=== PATIENT | male | born 1950 | race African-American/Black ===

== ENCOUNTER 2016-04-07 21:41 | Emergency (ER) | payer OTHER, MEDICAID ==
[~2016-04-07 21:41] MED LIST: AMLO10 PO; ATOR10 PO; CITA20TA4 PO; DOXA4 PO; LISI20 PO; LORA1TAB PO; OMEGCAP2 PO; ULTR50TA PO
[2016-04-07 21:44] VITALS: BP 193/101; PULSE 71; RESP 18; TEMP 98.4; O2SAT 98
[2016-04-07] MEDS ORDERED: LISI40TA PO (22:08)
[2016-04-07] MEDS ORDERED: OMEG100010 (22:08)
[2016-04-07] MEDS ORDERED: CITA20TA4 PO (22:08)
[2016-04-07] MEDS ORDERED: DOXA1TAB43 PO (22:08)
[2016-04-07] MEDS ORDERED: AMLO10TA2 PO (22:08)
[2016-04-07] MEDS ORDERED: TRAM50TA PO (22:08)
[2016-04-07] MEDS ORDERED: ATOR10TA15 PO (22:08)
[2016-04-07] MEDS ORDERED: LORA1TAB12 PO (22:08)
[2016-04-07] MEDS ORDERED: OXYC1CAP PO (22:08)
[2016-04-07 22:14] VITALS: O2SAT 95
--- NOTE | 2016-04-07 22:26 | PD ---
HPI Chief Complaint: Complaint Time Seen by Provider: 21:58 Travel History International Travel<30 days: No Contact w/Intl Traveler<30days: No Traveled to known affect area: No History of Present Illness HPI The patient is a 65 year old female who presents to the [facility] emergency department with a history of urinary retention that he reports began today after he underwent a hemorrhoidectomy. The patient reports that he has a history of urinary retention in the past and has had a catheter previously. He is seen by a urologist, however he cannot recall the name of his urologist. He reports having severe pain related to urinary retention. The patient reports that he has been drinking fluids well today. He is unsure whether he has passed any gas since the procedure. He reports that he was prescribed oxycodone for the pain. The patient denies any recent history of fevers, cough, congestion, neck pain, chest pain, shortness of breath, vomiting, diarrhea, or neurologic symptoms. PFS Past Medical History Narrative Medical The patient's past medical history is significant for a history of urinary retention, hypertension, hyperlipidemia, COPD, anxiety disorder, coronary artery disease status post stent placement. Arthritis: No Asthma: No Autoimmune Disease: No Blood Disorders: No Anxiety: Yes Depression: Yes Heart Rhythm Problems: Yes (BRADYCARDIA) Cancer: No Cardiac Catheterization: Yes (2006) Cardiovascular Problems: Yes High Cholesterol: Yes Chemotherapy: No Chest Pain: Yes Congestive Heart Failure: No COPD: No Cerebrovascular Accident: Yes Coronary Artery Disease: Yes Diabetes: No Dialysis: No Diminished Hearing: No Endocrine: No Gastrointestinal Disorders: No GERD: No Glaucoma: No Genitourinary: No Headaches: No Hepatitis: No Hiatal Hernia: No Heparin Induced Thrombocytopen: No Hypertension: Yes Immune Disorder: No Kidney Stones: No Musculoskeletal: No Neurologic: No Psychiatric: Yes Reproductive: No Respiratory: Yes (COPD) Migraines: No Myocardial Infarction: Yes Radiation Therapy: No Renal Failure: No Seizures: No Sickle Cell Disease: No Sleep Apnea: No Thyroid Disease: No Ulcer: No Influenza Vaccination: Yes PNEUMOCCOCAL Vaccine (Year): 2008 Past Surgical History Narrative Surgical The patient's past surgical history is significant for 2 abdominal hernia repairs, left ankle fracture ORIF, hemorrhoidectomy. Abdominal Surgery: Yes AICD: No Appendectomy: No Arteriovenous Shunt: No Cardiac Surgery: Yes Cholecystectomy: No Coronary Artery Bypass Graft: No Coronary Stent: Yes Ear Surgery: No Endocrine Surgery: No Eye Surgery: No Genitourinary Surgery: No Gynecologic Surgery: No Insulin Pump: No Joint Replacement: No Neurologic Surgery: No Oral Surgery: No Pacemaker: No Thoracic Surgery: No Other Surgery: Yes (rt inguinal hernia repair) Family History Family Myocardial Infarction: Yes (Both sides) Social History Alcohol Use: No Tobacco Use: Yes (2PPD) Substance Use: No Allergies-Medications (Allergen,Severity, Reaction): Coded Allergies: Aspirin (Verified Allergy, Severe, Bleeding, 04/07/16) Morphine (Verified Allergy, Severe, RASH, 04/07/16) Toradol (Verified Allergy, Severe, VOMITING, 04/07/16) Reported Meds & Prescriptions Reported Meds & Active Scripts Active Flomax (Tamsulosin HCl) 0.4 Mg Cap 0.4 Mg PO HS Reported Oxycodone (Oxycodone HCl) 5 Mg Cap 5 Mg PO Q4H PRN Tramadol (Tramadol HCl) 50 Mg Tab 50 Mg PO Q4H PRN [place] 3 1000 mg ([place]-3 Fatty Acids) 1 Cap Cap Lorazepam 1 Mg Tab 1 Mg PO DAILY PRN Lisinopril 40 Mg Tab 40 Mg PO DAILY Doxazosin (Doxazosin Mesylate) 8 Mg Tab 8 Mg PO BID Citalopram (Citalopram Hydrobromide) 20 Mg Tab 20 Mg PO DAILY Atorvastatin (Atorvastatin Calcium) 10 Mg Tab 10 Mg PO HS Amlodipine (Amlodipine Besylate) 10 Mg Tab 10 Mg PO DAILY Review of Systems Except as stated in HPI: all other systems reviewed are Neg General / Constitutional: No: Fever Eyes: No: Visual changes HENT: No: Headaches Cardiovascular: No: Chest Pain or Discomfort Respiratory: No: Shortness of Breath Gastrointestinal: No: Abdominal Pain Genitourinary: Positive: Decreased Urinary Output, Hesitancy, No: Urgency, Frequency, Dysuria Musculoskeletal: No: Pain Skin: No Rash Neurologic: No: Weakness Psychiatric: No: Depression Endocrine: No: Polydipsia Hematologic/Lymphatic: No: Easy Bruising Physical Exam Narrative General: The patient is a well-developed well-nourished male, uncomfortable appearing on arrival, holding his abdomen. Head and Neck exam: Head is normocephalic atraumatic. Eyes: Pupils are equal round and reactive to light. Nose: Midline septum with pink mucous membranes Mouth: Dentition unremarkable. Moist mucus membranes. Posterior oropharynx is not erythematous. No tonsillar hypertrophy. Uvula midline. Airway patent. Neck: No palpable lymphadenopathy. No nuchal rigidity. No thyromegaly. Cardiovascular: Regular rate and rhythm without murmurs, gallops, or rubs. Lungs: Clear to auscultation bilaterally. No wheezes, rhonchi, or rales. Abdomen: Soft, with suprapubic abdominal discomfort on palpation. No tenderness on palpation of McBurney's point. No guarding, rebound, or rigidity. Normal bowel sounds are audible. Extremities: No clubbing, cyanosis, or edema. 2+ pulses in all 4 extremities. Back: No spinous process tenderness to palpation. No costovertebral angle tenderness to palpation. Neurologic Exam: Grossly nonfocal. Skin Exam: No rash noted. Intact skin that is warm and dry. Data Data Last Documented VS Vital Signs Date Time Temp Pulse Resp B/P Pulse Ox O2 Delivery O2 Flow Rate FiO2 04/07/16 22:14 95 Room Air 04/07/16 21:44 98.4 71 18 193/101 Orders Complete Blood Count With Diff (04/07/16 22:04) Comprehensive Metabolic Panel (04/07/16 22:04) Urinalysis - C+S If Indicated (04/07/16 22:04) Magnesium (Mg) (04/07/16 22:04) Iv Access Insert/Monitor (04/07/16 22:04) Ecg Monitoring (04/07/16 22:04) Oximetry (04/07/16 22:04) Urinary Catheter Insert/Apply (04/07/16 22:04) Oxycodone (Roxicodone) (04/07/16 23:15) Oxycodone-Acetamin 10-325 Mg (Percocet 1 (04/08/16 00:15) Labs Laboratory Tests Test 04/07/16 22:22 White Blood Count 10.1 TH/MM3 Red Blood Count 5.93 MIL/MM3 Hemoglobin 12.5 GM/DL Hematocrit 39.1 % Mean Corpuscular Volume 65.9 FL Mean Corpuscular Hemoglobin 21.1 PG Mean Corpuscular Hemoglobin 32.0 % Concent Red Cell Distribution Width 16.5 % Platelet Count 223 TH/MM3 Mean Platelet Volume 10.7 FL Neutrophils (%) (Auto) 80.8 % Lymphocytes (%) (Auto) 12.1 % Monocytes (%) (Auto) 6.6 % Eosinophils (%) (Auto) 0.1 % Basophils (%) (Auto) 0.4 % Neutrophils # (Auto) 8.2 TH/MM3 Lymphocytes # (Auto) 1.2 TH/MM3 Monocytes # (Auto) 0.7 TH/MM3 Eosinophils # (Auto) 0.0 TH/MM3 Basophils # (Auto) 0.0 TH/MM3 CBC Comment AUTO DIFF Differential Comment AUTO DIFF CONFIRMED Toxic Vacuolation PRESENT Platelet Estimate NORMAL Platelet Morphology Comment NORMAL Ovalocytes 1+ Acanthocytes OCC Keratocytes OCC Urine Color YELLOW Urine Turbidity CLEAR Urine pH 6.5 Urine Specific [place] 1.013 Urine Protein 100 mg/dL Urine Glucose (UA) NEG mg/dL Urine Ketones NEG mg/dL Urine Occult Blood NEG Urine Nitrite NEG Urine Bilirubin NEG Urine Urobilinogen LESS THAN 2.0 MG/DL Urine Leukocyte Esterase NEG Urine RBC 1 /hpf Urine WBC LESS THAN 1 /hpf Urine Mucus FEW /lpf Microscopic Urinalysis Comment CULT NOT INDICATED Sodium Level 139 MEQ/L Potassium Level 4.1 MEQ/L Chloride Level 106 MEQ/L Carbon Dioxide Level 26.6 MEQ/L Anion Gap 6 MEQ/L Blood Urea Nitrogen 12 MG/DL Creatinine 1.66 MG/DL Estimat Glomerular Filtration 51 ML/MIN Rate Random Glucose 112 MG/DL Calcium Level 8.5 MG/DL Magnesium Level 1.8 MG/DL Total Bilirubin 0.5 MG/DL Aspartate Amino Transf 14 U/L (AST/SGOT) Alanine Aminotransferase 22 U/L (ALT/SGPT) Alkaline Phosphatase 85 U/L Total Protein 7.7 GM/DL Albumin 3.6 GM/DL [facility] Medical Decision Making Medical Screen Exam Complete: Yes Emergency Medical Condition: Yes Medical Record Reviewed: Yes Differential Diagnosis Urinary retention from medication side effect, versus urinary retention from benign prostatic hypertrophy Narrative Course During the course of the patients emergency department visit, the patients history, examination, and differential diagnosis were reviewed with the patient. The patient had IV access obtained and blood work sent for analysis. The patient had a Wilkins catheter placed to gravity. The patient had a liter out of yellow urine. The patient was provided oxycodone 5 mg by mouth 1 for pain related to his hemorrhoidectomy. The patient continued to have discomfort and showed me a bottle of oxycodone 10/325 that he was given for postop pain. He was given an additional oxycodone 10/325 one by mouth times one. The patients laboratory studies were reviewed and remarkable for a CBC that shows a white count 10.1, hemoglobin 12.5, platelets 223 with 80.8 neutrophils, CMP is remarkable for creatinine of 1.66, glucose 112, urinalysis shows 100 protein, otherwise unremarkable. The patient had a Wilkins catheter placed to a leg bag. He was instructed to follow-up with his urologist in the next 2 days. The patient was given a perception for Flomax. The patient is resting comfortably and feels better, is alert and in no distress. The patients results and examination findings were discussed with the patient. The repeat examination is unremarkable and benign. The history, exam, diagnostic testing, and current condition do not suggest any significant pathology to warrant further testing, continued ED treatment, admission, or surgical evaluation at this point. The vital signs have been stable. The patient does not have uncontrollable pain, intractable vomiting, or other significant symptoms. The patient's condition is stable and appropriate for discharge. The patient will pursue further outpatient evaluation with a primary care physician or other designated or consulting physician as indicated in the discharge instructions. The patient expressed understanding and was agreeable with this plan. Diagnosis Primary Impression: Urinary retention Referrals: Urologist 2 days Patient Instructions: General Instructions, Urinary Retention in Men (ED) Med/Other Pt SpecificInfo: Prescription(s) given Scripts Tamsulosin (Flomax)0.4 Mg Cap0.4 Mg PO HS #14 CAP Ref 0 Prov:Agnes José MD 04/08/16 Disposition: 01 DISCHARGE HOME Condition: Stable Agnes José MD Apr 07, 2016 22:25
[2016-04-07 22:44] LABS: AUTOMATED NEUTROPHIL # 8.2 TH/MM3 (1.8-7.7); BASOPHIL % 0.4 % (0.0-2.0); EOSINOPHIL % 0.1 % (0.0-4.0); HEMATOCRIT 39.1 % (39.0-51.0); LYMPH % 12.1 % (9.0-44.0); LYMPHOCYTE # 1.2 TH/MM3 (1.0-4.8); MEAN CELL VOLUME 65.9 FL (80.0-100.0); MEAN CORPUSCULAR HEMOGLOBIN 21.1 PG (27.0-34.0); MONO % 6.6 % (0.0-8.0); NEUT % 80.8 % (16.0-70.0); PLATELET COUNT 223 TH/MM3 (150-450); RED BLOOD COUNT 5.93 MIL/MM3 (4.50-5.90); RED CELL DISTRIBUTION WIDTH 16.5 % (11.6-17.2); WHITE BLOOD COUNT 10.1 TH/MM3 (4.0-11.0)
[2016-04-07 22:45] LABS: HEMO FLAGS AUTO DIFF
[2016-04-07 22:54] LABS: BLOOD, URINE NEG (NEG); GLUCOSE,URINE NEG (NEG); KETONE, URINE NEG (NEG); MUCUS URINE FEW /lpf (OCC); NITRITE,URINE NEG (NEG); PH, URINE 6.5 (5.0-8.5); URINE COLOR YELLOW (YELLW/STRAW)
[2016-04-07 22:57] LABS: ALT (GPT) 22 U/L (12-78); ANION GAP 6 MEQ/L (5-15); AST (GOT) 14 U/L (15-37); BICARBONATE 26.6 MEQ/L (21.0-32.0); BLOOD UREA NITROGEN 12 MG/DL (7-18); CHLORIDE 106 MEQ/L (98-107); COMMENT (UR) CULT NOT INDICATED; CULTURE IF INDICATED CULT NOT INDICATED; GLOMERULAR FILTRATION RATE 51 ML/MIN (>89); MAGNESIUM 1.8 MG/DL (1.5-2.5); POTASSIUM 4.1 MEQ/L (3.5-5.1); SODIUM (NA) 139 MEQ/L (136-145)
[2016-04-07 22:59] LABS: ALKALINE PHOSPHATASE 85 U/L (45-117); TOTAL BILIRUBIN ADULT 0.5 MG/DL (0.2-1.0)
[2016-04-07 23:25] LABS: ACANTHOCYTES OCC (NORMAL); KERATOCYTES OCC (NORMAL); OVALOCYTES 1+ (NORMAL); PLATELET ESTIMATE SMEAR NORMAL (NORMAL); PLATELET MORPHOLOGY NORMAL (NORMAL); SCAN/DIFF AUTO DIFF CONFIRMED; TOXIC VACUOLATION PRESENT (NONE SEEN)
[2016-04-08] MEDS ORDERED: TAMS5CAP PO (00:10)
[2016-04-08] MEDS ORDERED: oxyCODONE/ACETAMINOPHEN 10 MG/325 MG TAB PO ONE (00:15)
== END 2016-04-08 01:00 | disposition home or self-care (01) ==
LOC: NEPC 21:41
DX: R33.9 Retention of urine, unspecified (principal); I10 Essential (primary) hypertension; E78.5 Hyperlipidemia, unspecified; J44.9 Chronic obstructive pulmonary disease, unspecified; I25.10 Atherosclerotic heart disease of native coronary artery without angina pectoris; I25.2 Old myocardial infarction; F17.200 Nicotine dependence, unspecified, uncomplicated; Z98.890 Other specified postprocedural states; Z86.59 Personal history of other mental and behavioral disorders; Z98.61 Coronary angioplasty status; Z86.79 Personal history of other diseases of the circulatory system; Z79.899 Other long term (current) drug therapy
CPT/HCPCS: 51702; 80053; 81001; 83735; 85025

== ENCOUNTER 2016-11-20 22:17 | Emergency (ER) | payer OTHER, MEDICAID ==
[~2016-11-20] VITALS: Ht 185.4 cm; Wt 94.5 kg
[~2016-11-20 22:17] MED LIST changes: -AMLO10 PO; +AMLO10TA2 PO; -ATOR10 PO; +ATOR10TA15 PO; +DOXA1TAB43 PO; -DOXA4 PO; -LISI20 PO; +LISI40TA PO; -LORA1TAB PO; +LORA1TAB12 PO; +OMEG100010; -OMEGCAP2 PO; +OXYC1CAP PO; +TAMS5CAP PO; +TRAM50TA PO; -ULTR50TA PO
[2016-11-20 22:23] VITALS: PULSE 62; RESP 16; TEMP 98.7; O2SAT 96
--- NOTE | 2016-11-20 22:35 | PD ---
HPI Chief Complaint: Foreign Body Time Seen by Provider: 22:22 Travel History International Travel<30 days: No Contact w/Intl Traveler<30days: No Traveled to known affect area: No History of Present Illness HPI 66-year-old male came to the emergency room with history of a fishbone stuck in his throat. Patient was eating fish with his and the says it had a lot of bones. Soon after eating 2 bites patient started to choke. He tried to drink water and that was coming out. His drove him to the emergency room quickly. Patient appeared to be in significant distress in triage and was brought in emergently. When I saw him he was having difficulty talking but was not drooling and maintaining his airway. Vital signs were stable. [facility] Past Medical History Narrative Medical List of his past medical, surgical, social and family history is reviewed from the nursing note. Arthritis: No Asthma: No Autoimmune Disease: No Blood Disorders: No Anxiety: Yes Depression: Yes Heart Rhythm Problems: Yes (BRADYCARDIA) Cancer: No Cardiac Catheterization: Yes (2006) Cardiovascular Problems: Yes High Cholesterol: Yes Chemotherapy: No Chest Pain: Yes Congestive Heart Failure: No COPD: No Cerebrovascular Accident: Yes Coronary Artery Disease: Yes Diabetes: No Dialysis: No Diminished Hearing: No Endocrine: No Gastrointestinal Disorders: No GERD: No Glaucoma: No Genitourinary: No Headaches: No Hepatitis: No Hiatal Hernia: No Heparin Induced Thrombocytopen: No Hypertension: Yes Immune Disorder: No Kidney Stones: No Musculoskeletal: No Neurologic: No Psychiatric: Yes Reproductive: No Respiratory: Yes (COPD) Migraines: No Myocardial Infarction: Yes Radiation Therapy: No Renal Failure: No Seizures: No Sickle Cell Disease: No Sleep Apnea: No Thyroid Disease: No Ulcer: No PNEUMOCCOCAL Vaccine (Year): 2008 Past Surgical History Abdominal Surgery: Yes AICD: No Appendectomy: No Arteriovenous Shunt: No Cardiac Surgery: Yes Cholecystectomy: No Coronary Artery Bypass Graft: No Coronary Stent: Yes Ear Surgery: No Endocrine Surgery: No Eye Surgery: No Genitourinary Surgery: No Gynecologic Surgery: No Insulin Pump: No Joint Replacement: No Neurologic Surgery: No Oral Surgery: No Pacemaker: No Thoracic Surgery: No Other Surgery: Yes (rt inguinal hernia repair, hemorrhoidectomy) Family History Family Myocardial Infarction: Yes (Both sides) Social History Alcohol Use: No Tobacco Use: Yes (1ppd) Substance Use: No Allergies-Medications (Allergen,Severity, Reaction): Coded Allergies: aspirin (Verified Allergy, Severe, Bleeding, 11/20/16) ketorolac (Verified Allergy, Severe, VOMITING, 11/20/16) morphine (Verified Allergy, Severe, RASH, 11/20/16) Comments List of his allergies reviewed from the nursing note. Reported Meds & Prescriptions Reported Meds & Active Scripts Active Reported Oxycodone (Oxycodone HCl) 5 Mg Cap 5 Mg PO Q4H PRN [place] 3 1000 mg ([place]-3 Fatty Acids) 1 Cap Cap Lorazepam 1 Mg Tab 1 Mg PO DAILY PRN Lisinopril 40 Mg Tab 40 Mg PO DAILY Citalopram (Citalopram Hydrobromide) 20 Mg Tab 20 Mg PO DAILY Atorvastatin (Atorvastatin Calcium) 10 Mg Tab 10 Mg PO HS Amlodipine (Amlodipine Besylate) 10 Mg Tab 10 Mg PO DAILY Narrative Medication List of his home medications reviewed from the nursing note. Review of Systems Except as stated in HPI: all other systems reviewed are Neg Physical Exam Narrative GENERAL: Awake, alert, anxious, significant distress SKIN: Focused skin assessment warm/dry. HEAD: Atraumatic. Normocephalic. EYES: Pupils equal and round. No scleral icterus. No injection or drainage. ENT: No nasal bleeding or discharge. Mucous membranes pink and moist. Unable to see any foreign body anteriorly upon inspection of the pharynx. Patient had some pulling of the saliva that needed to be suctioned out NECK: Trachea midline. No JVD. CARDIOVASCULAR: Regular rate and rhythm. No murmur appreciated. RESPIRATORY: No accessory muscle use. Clear to auscultation. Breath sounds equal bilaterally. GASTROINTESTINAL: Abdomen soft, non-tender, nondistended. Hepatic and splenic margins not palpable. MUSCULOSKELETAL: No obvious deformities. No clubbing. No cyanosis. No edema. NEUROLOGICAL: Awake and alert. No obvious cranial nerve deficits. Motor grossly within normal limits. Normal speech. PSYCHIATRIC: Appropriate mood and affect; insight and judgment normal. Data Data Last Documented VS Vital Signs Date Time Temp Pulse Resp B/P (MAP) Pulse Ox O2 Delivery O2 Flow Rate FiO2 11/21/16 00:39 50 16 177/94 (121) 96 11/20/16 22:23 98.7 Orders Orders Soft Tissue Neck (11/20/16 ) ^ Saline Lock (11/20/16 22:24) MDM Medical Decision Making Medical Screen Exam Complete: Yes Emergency Medical Condition: Yes Medical Record Reviewed: Yes Differential Diagnosis Foreign body in throat Narrative Course 11:03 PM I discussed bout the patient with Dr. Schumacher who is on-call for ENT. As per him he first needed an x-ray done before he would give any opinion. The x-ray of the soft tissue of the neck has been done. Awaiting for the read. I can see a foreign body on the lateral film just inferior to the epiglottis. 12:[address] Schumacher was here and scope the patient. No fish bones are noticed at this point. Patient does not need to go to the OR. He recommended possibly GI consult. I put a call out for GI. 12:26 AM I discussed the case with Dr. Mcneill from GI. He agreed the patient can go home if he is able to swallow okay. Patient will be discharged home. Procedures EKG Prior to Arrival: No Physician Communication Physician Communication Dr. Schumacher Diagnosis Primary Impression: Superficial foreign body of throat, sequela Referrals: Primary Care Physician Additional Instructions: Eat soft diet for the next 24 hours. You can take Tylenol/Motrin for pain or discomfort. Follow-up with your primary care. Disposition: 01 DISCHARGE HOME Condition: Stable Fabrice Carranza MD Nov 20, 2016 22:35
--- NOTE | 2016-11-20 23:15 | RADRPT ---
EXAM DATE/TIME: 11/20/2016 22:37 [place] COMPARISON: No previous studies available for comparison. INDICATIONS : Swallowed fish bone this evening. MEDICAL HISTORY : Myocardial infarction. Hypercholesterolemia. Hypertension. Cataracts.CVA. SURGICAL HISTORY : Cardiac catheterization. Coronary stent. Right inguinal hernia repair. ENCOUNTER: Initial ACUITY: 1 day PAIN SCORE: 4/10 LOCATION: Bilateral Neck FINDINGS: Two view examination of the soft tissues of the neck demonstrates 2 linear calcific densities seen po sterior to the thyroid cartilage measuring 2.6 cm and 1.2 cm. These are concerning for foreign materi al in the hypopharynx/ upper cervical esophagus. There is degenerative change in the cervical spine. CONCLUSION: Possible small bony foreign bodies in the hypopharynx/upper cervical esophagus. Drake Feliz MD on November 20, 2016 at 23:12 Board Certified Radiologist. This report was verified electronically.
[2016-11-21 00:39] VITALS: BP 177/94
== END 2016-11-21 00:44 | disposition home or self-care (01) ==
LOC: NEPD 22:17
DX: T18.12 Food in esophagus (principal); X58.XXXS Exposure to other specified factors, sequela; I25.10 Atherosclerotic heart disease of native coronary artery without angina pectoris; I10 Essential (primary) hypertension; Z95.5 Presence of coronary angioplasty implant and graft; J44.9 Chronic obstructive pulmonary disease, unspecified; E78.00 Pure hypercholesterolemia, unspecified; F41.9 Anxiety disorder, unspecified
CPT/HCPCS: 70360; 99283

== ENCOUNTER 2016-12-14 23:19 | Inpatient (IN) | payer OTHER, MEDICARE ==
[~2016-12-14] VITALS: Ht 185.4 cm; Wt 95.0 kg
[~2016-12-14 23:19] MED LIST changes: -DOXA1TAB43 PO; -TAMS5CAP PO; -TRAM50TA PO
[2016-12-14 23:21] VITALS: BP 184/101; PULSE 88; RESP 18; TEMP 98.1; O2SAT 97
--- NOTE | 2016-12-14 23:54 | PD ---
HPI Chief Complaint: Hypertension Time Seen by Provider: 23:45 Travel History International Travel<30 days: No Contact w/Intl Traveler<30days: No Traveled to known affect area: No History of Present Illness HPI The patient is a 66 year old male who presents to the [facility] emergency department with a history of bilateral roman catholic pain with blurry vision that began a few hours ago. He took his BP and it was elevated at 212/110. The patient reports that he felt lightheaded/dizzy earlier today. The patient reports that approximately 2 weeks ago he had an additional blood pressure medication added to his regimen. He cannot recall the name of the medication. The patient reports that he does have a history of bradycardia usually in the 40s to 50s, however he is unsure whether his heart rate has ever drop down into the 30s. Otherwise on review of systems, the patient denies any recent fevers, cough, congestion, neck pain, chest pain, shortness of breath, abdominal pain, vomiting, diarrhea, urinary symptoms, one-sided weakness, slurred speech, difficulty with word finding, double vision or loss of vision, or facial droop. PCP: Dr. Maciel. 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 Arthritis: No Asthma: No Autoimmune Disease: No Blood Disorders: No Anxiety: Yes Depression: Yes Heart Rhythm Problems: Yes (BRADYCARDIA) Cancer: No Cardiac Catheterization: Yes (2005) Cardiovascular Problems: Yes High Cholesterol: Yes Chemotherapy: No Chest Pain: Yes Congestive Heart Failure: No COPD: No Cerebrovascular Accident: Yes Coronary Artery Disease: Yes Diabetes: No Dialysis: No Diminished Hearing: No Endocrine: No Gastrointestinal Disorders: No GERD: No Glaucoma: No Genitourinary: No Headaches: No Hepatitis: No Hiatal Hernia: No Heparin Induced Thrombocytopen: No Hypertension: Yes Immune Disorder: No Kidney Stones: No Musculoskeletal: No Neurologic: No Psychiatric: Yes Reproductive: No Respiratory: Yes (COPD) Migraines: No Myocardial Infarction: Yes Radiation Therapy: No Renal Failure: No Seizures: No Sickle Cell Disease: No Sleep Apnea: No Thyroid Disease: No Ulcer: No PNEUMOCCOCAL Vaccine (Year): 2008 Past Surgical History Narrative Surgical The patient's past surgical history is significant for cardiac catheterization with cardiac stent placement. Abdominal Surgery: Yes AICD: No Appendectomy: No Arteriovenous Shunt: No Cardiac Surgery: Yes Cholecystectomy: No Coronary Artery Bypass Graft: No Coronary Stent: Yes Ear Surgery: No Endocrine Surgery: No Eye Surgery: No Genitourinary Surgery: No Gynecologic Surgery: No Insulin Pump: No Joint Replacement: No Neurologic Surgery: No Oral Surgery: No Pacemaker: No Thoracic Surgery: No Other Surgery: Yes (rt inguinal hernia repair, hemorrhoidectomy) Social History Alcohol Use: Yes (rarely) Tobacco Use: Yes (1 03/24 ppd) Substance Use: No Allergies-Medications (Allergen,Severity, Reaction): Coded Allergies: aspirin (Verified Allergy, Severe, Bleeding, 12/14/16) morphine (Verified Allergy, Severe, RASH, 12/14/16) ketorolac (Verified Adverse Reaction, Severe, VOMITING, 12/15/16) Reported Meds & Prescriptions Reported Meds & Active Scripts Active Reported Clindamycin (Clindamycin HCl) 150 Mg Cap 150 Mg PO BID Lorazepam 1 Mg Tab 1 Mg PO BID PRN Lisinopril 20 Mg Tab 20 Mg PO DAILY Hydralazine (Hydralazine HCl) 100 Mg Tab 10 Mg PO Q8HR Take with meals Oxycodone (Oxycodone HCl) 5 Mg Cap 5 Mg PO Q4H PRN [place] 3 1000 mg ([place]-3 Fatty Acids) 1 Cap Cap Atorvastatin (Atorvastatin Calcium) 10 Mg Tab 10 Mg PO HS Amlodipine (Amlodipine Besylate) 10 Mg Tab 10 Mg PO DAILY Review of Systems Except as stated in HPI: all other systems reviewed are Neg General / Constitutional: No: Fever Eyes: No: Visual changes HENT: Positive: Headaches, Lightheadedness, No: Neck Stiffness, Neck Pain Cardiovascular: No: Chest Pain or Discomfort Respiratory: No: Shortness of Breath Gastrointestinal: No: Abdominal Pain Genitourinary: No: Dysuria Musculoskeletal: No: Pain Skin: No Rash Neurologic: Positive: Weakness (generalized fatigue), Headache, No: Focal Abnormalities, Change in Mentation, Slurred Speech, Sensory Disturbance Psychiatric: No: Depression Endocrine: No: Polydipsia Hematologic/Lymphatic: No: Easy Bruising Physical Exam Narrative General: The patient is a well-developed well-nourished male in no acute distress Head and Neck exam: Head is normocephalic atraumatic. Eyes: EOMI, pupils are equal round and reactive to light. Nose: Midline septum with pink mucous membranes Mouth: Dentition unremarkable. Moist mucus membranes. Posterior oropharynx is not erythematous. No tonsillar hypertrophy. Uvula midline. Airway patent. Neck: No palpable lymphadenopathy. No nuchal rigidity. No thyromegaly. Cardiovascular: Sinus bradycardia with a rate in the 40s without murmurs, gallops, or rubs. No pulse deficit to the extremities on simultaneous auscultation and palpation of his radial artery. Lungs: Clear to auscultation bilaterally. No wheezes, rhonchi, or rales. Abdomen: Soft, without tenderness to palpation in all 4 quadrants of the abdomen. No guarding, rebound, or rigidity. Normal bowel sounds are audible. No tenderness on palpation of McBurney's point. Extremities: No clubbing, cyanosis, or edema. 2+ pulses in all 4 extremities. No calf tenderness on palpation. Back: No spinous process tenderness to palpation. No costovertebral angle tenderness to palpation. Neurologic Exam: Grossly nonfocal Skin Exam: No rash noted. Intact skin that is warm and dry. Data Data Last Documented VS Vital Signs Date Time Temp Pulse Resp B/P (MAP) Pulse Ox O2 Delivery O2 Flow Rate FiO2 12/14/16 23:21 98.1 88 18 184/101 (128) 97 Room Air Orders Orders Electrocardiogram (12/15/16 00:38) Complete Blood Count With Diff (12/15/16 00:38) Comprehensive Metabolic Panel (12/15/16 00:38) Troponin I (12/15/16 00:38) Urinalysis - C+S If Indicated (12/15/16 00:38) Magnesium (Mg) (12/15/16 00:38) Chest, Single Ap (12/15/16 00:38) Iv Access Insert/Monitor (12/15/16 00:38) Ecg Monitoring (12/15/16 00:38) Oximetry (12/15/16 00:38) Ct Brain W/O Iv Contrast(Rout) (12/15/16 01:20) Hydralazine Inj (Apresoline Inj) (12/15/16 02:15) Admit Order (Ed Use Only) (12/15/16 02:45) Labs Laboratory Tests Test 12/15/16 01:00 White Blood Count 12.1 TH/MM3 Red Blood Count 5.81 MIL/MM3 Hemoglobin 12.4 GM/DL Hematocrit 40.4 % Mean Corpuscular Volume 69.6 FL Mean Corpuscular Hemoglobin 21.3 PG Mean Corpuscular Hemoglobin Concent 30.6 % Red Cell Distribution Width 17.4 % Platelet Count 166 TH/MM3 Mean Platelet Volume 10.0 FL Neutrophils (%) (Auto) 54.6 % Lymphocytes (%) (Auto) 33.7 % Monocytes (%) (Auto) 10.4 % Eosinophils (%) (Auto) 1.0 % Basophils (%) (Auto) 0.3 % Neutrophils # (Auto) 6.6 TH/MM3 Lymphocytes # (Auto) 4.1 TH/MM3 Monocytes # (Auto) 1.3 TH/MM3 Eosinophils # (Auto) 0.1 TH/MM3 Basophils # (Auto) 0.0 TH/MM3 CBC Comment DIFF FINAL Differential Comment Urine Color LIGHT-YELLOW Urine Turbidity CLEAR Urine pH 5.5 Urine Specific [place] 1.009 Urine Protein 30 mg/dL Urine Glucose (UA) NEG mg/dL Urine Ketones NEG mg/dL Urine Occult Blood NEG Urine Nitrite NEG Urine Bilirubin NEG Urine Urobilinogen LESS THAN 2.0 MG/DL Urine Leukocyte Esterase NEG Urine RBC LESS THAN 1 /hpf Urine WBC LESS THAN 1 /hpf Microscopic Urinalysis Comment CULT NOT INDICATED Blood Urea Nitrogen 23 MG/DL Creatinine 1.72 MG/DL Random Glucose 99 MG/DL Total Protein 6.9 GM/DL Albumin 3.2 GM/DL Calcium Level 8.1 MG/DL Magnesium Level 2.2 MG/DL Alkaline Phosphatase 91 U/L Aspartate Amino Transf (AST/SGOT) 20 U/L Alanine Aminotransferase (ALT/SGPT) 27 U/L Total Bilirubin 0.2 MG/DL Sodium Level 138 MEQ/L Potassium Level 4.0 MEQ/L Chloride Level 105 MEQ/L Carbon Dioxide Level 26.3 MEQ/L Anion Gap 7 MEQ/L Estimat Glomerular Filtration Rate 48 ML/MIN Troponin I 0.02 NG/ML [facility] Medical Decision Making Medical Screen Exam Complete: Yes Emergency Medical Condition: Yes Medical Record Reviewed: Yes Interpretation(s) Last Impressions Head CT 12/15/16 0120 Signed Impressions: Service Date/Time: Thursday, December 15, 2016 01:47 - CONCLUSION: 1. No acute intracranial abnormality noted. No change from November 29, 2015. Ramon Wheeler MD Chest X-Ray 12/15/16 0038 Signed Impressions: Service Date/Time: Thursday, December 15, 2016 00:35 - CONCLUSION: 1. Mild basilar atelectasis. Ramon Wheeler MD Differential Diagnosis Symptomatic bradycardia, versus hypertensive emergency, versus hypertensive urgency, versus intracranial hemorrhage, versus intracranial mass Narrative Course During the course of the patients emergency department visit, the patients history, examination, and differential diagnosis were reviewed with the patient. The patient had IV access obtained and blood work sent for analysis. The patient was placed on a city bailiff with oximetry and blood pressure monitoring. The patient ECG reveals a sinus bradycardia heart rate of 44, no acute ST segment elevation. QRS duration is 82 ms, QTC is 396 ms. The patient was initially provided hydralazine 5 mg IV times one for uncontrolled hypertension. The patients laboratory studies were reviewed and remarkable for a white count of 12.1, hemoglobin 12.4, platelets 166 with 10.4 monocytes, CMP is remarkable for a BUN of 23, creatinine 1.72, calcium 8.1, magnesium 2.2, albumin 3.2, urinalysis shows 30 protein Radiology studies were reviewed and remarkable for a CT scan of the brain that shows no acute intracranial abnormality. Chest x-ray shows mild basilar atelectasis. While the patient was being observed in the emergency department, I was notified by the nurse that the patient's heart rate had gone down as low as to 38 on the monitor. In general, the patient's heart rate is in the 40s. The patients results were discussed with the patient, including the plan of care. I explained that further testing and/ or monitoring is indicated based on the patients history, examination, and/ or laboratory findings. Therefore, I recommended admission for additional evaluation. The patient expressed understanding and was agreeable with this plan. The patient was admitted to the hospital in stable condition and sent to a bed under the care of the [facility]. Physician Communication Physician Communication The patient's case was discussed with Dr. Pickens who did agree to admit the patient for further evaluation and treatment at this time. Diagnosis Primary Impression: Symptomatic bradycardia Additional Impression: Uncontrolled hypertension Admitting Information Admitting Physician Requests: Admit Agnes José MD Dec 14, 2016 23:54
[2016-12-14] MEDS ORDERED: CLIN1CAP5 PO (23:57)
[2016-12-14] MEDS ORDERED: ATEN50TA PO (23:57)
[2016-12-14] MEDS ORDERED: HYDR-3801 PO (23:57)
[2016-12-14] MEDS ORDERED: LORA1TAB12 PO (23:57)
[2016-12-14] MEDS ORDERED: LISI-515 PO (23:57)
[2016-12-15] VITALS (9 sets, daily range): BP systolic 157–219; BP diastolic 86–121; PULSE 47–78; RESP 16–20; TEMP 98.5–99.4; O2SAT 94–98
--- NOTE | 2016-12-15 00:51 | RADRPT ---
EXAM DATE/TIME: 12/15/2016 00:35 [facility] COMPARISON: No previous studies available for comparison. INDICATIONS : Chest pain. MEDICAL HISTORY : Hypertension. SURGICAL HISTORY : None. ENCOUNTER: Initial ACUITY: 1 day PAIN SCORE: 0/10 LOCATION: Bilateral chest FINDINGS: A single view of the chest demonstrates the lungs to be symmetrically aerated without evidence of mas s, infiltrate or effusion. Mild basilar atelectasis. The cardiomediastinal contours are unremarkable. Osseous structures are intact. CONCLUSION: 1. Mild basilar atelectasis. Ramon Wheeler MD on December 15, 2016 at 0:49 Board Certified Radiologist. This report was verified electronically.
[2016-12-15 01:07] LABS: AUTOMATED NEUTROPHIL # 6.6 TH/MM3 (1.8-7.7); BASOPHIL % 0.3 % (0.0-2.0); EOSINOPHIL # 0.1 TH/MM3 (0-0.4); HEMATOCRIT 40.4 % (39.0-51.0); HEMO FLAGS DIFF FINAL; LYMPH % 33.7 % (9.0-44.0); LYMPHOCYTE # 4.1 TH/MM3 (1.0-4.8); MEAN CELL VOLUME 69.6 FL (80.0-100.0); MEAN CORPUSCULAR HEMOGLOBIN 21.3 PG (27.0-34.0); MEAN CORPUSCULAR HGB CONC 30.6 % (32.0-36.0); MONO % 10.4 % (0.0-8.0); NEUT % 54.6 % (16.0-70.0); PLATELET COUNT 166 TH/MM3 (150-450); RED BLOOD COUNT 5.81 MIL/MM3 (4.50-5.90); RED CELL DISTRIBUTION WIDTH 17.4 % (11.6-17.2); WHITE BLOOD COUNT 12.1 TH/MM3 (4.0-11.0)
[2016-12-15 01:10] LABS: BLOOD, URINE NEG (NEG); COMMENT (UR) CULT NOT INDICATED; CULTURE IF INDICATED CULT NOT INDICATED; GLUCOSE,URINE NEG (NEG); KETONE, URINE NEG (NEG); NITRITE,URINE NEG (NEG); PH, URINE 5.5 (5.0-8.5); URINE COLOR LIGHT-YELLOW (YELLW/STRAW)
[2016-12-15 01:37] LABS: ALKALINE PHOSPHATASE 91 U/L (45-117); TOTAL BILIRUBIN ADULT 0.2 MG/DL (0.2-1.0)
[2016-12-15 02:05] LABS: ALT (GPT) 27 U/L (12-78); ANION GAP 7 MEQ/L (5-15); AST (GOT) 20 U/L (15-37); BICARBONATE 26.3 MEQ/L (21.0-32.0); BLOOD UREA NITROGEN 23 MG/DL (7-18); CHLORIDE 105 MEQ/L (98-107); GLOMERULAR FILTRATION RATE 48 ML/MIN (>89); MAGNESIUM 2.2 MG/DL (1.5-2.5); SODIUM (NA) 138 MEQ/L (136-145)
[2016-12-15] MEDS ORDERED: hydrALAZINE HCL 20 MG/ML VIAL IV PUSH ONE (02:15)
--- NOTE | 2016-12-15 02:35 | RADRPT ---
EXAM DATE/TIME: 12/15/2016 01:47 [facility] COMPARISON: No previous studies available for comparison. INDICATIONS : Cephalgia with elevated blood pressure. RADIATION DOSE: 56.35 CTDIvol (mGy) MEDICAL HISTORY : Cardiovascular disease. Myocardial infarction. Chronic obstructive pulmonary disease.CVA. Coronary ar hanna disease. SURGICAL HISTORY : Cardiac catherization. ENCOUNTER: Initial ACUITY: 1 day PAIN SCALE: 3/10 LOCATION: cranial TECHNIQUE: Multiple contiguous axial images were obtained of the head. Using automated exposure control and adj ustment of the mA and/or kV according to patient size, radiation dose was kept as low as reasonably a chievable to obtain optimal diagnostic quality images. DICOM format image data is available electro nically for review and comparison. FINDINGS: CEREBRUM: The ventricles are normal for age. No evidence of midline shift, mass lesion, hemorrhage or acute in farction. No extra-axial fluid collections are seen. POSTERIOR FOSSA: The cerebellum and brainstem are intact. The 4th ventricle is midline. The cerebellopontine angle i s unremarkable. EXTRACRANIAL: The visualized portion of the orbits is intact. SKULL: The calvaria is intact. No evidence of skull fracture. CONCLUSION: 1. No acute intracranial abnormality noted. No change from November 29, 2015. Ramon Wheeler MD on December 15, 2016 at 2:32 Board Certified Radiologist. This report was verified electronically.
[2016-12-15] MEDS ORDERED: LORazepam 1 MG TAB PO PRN (04:15)
[2016-12-15] MEDS ORDERED: BISACODYL 10 MG SUPP RECTAL PRN (04:30)
[2016-12-15] MEDS ORDERED: SENNOSIDES 8.6 MG TAB PO PRN (04:30)
[2016-12-15] MEDS ORDERED: NALOXONE HCL 0.4 MG/ML AMP IV PUSH PRN (04:30)
[2016-12-15] MEDS ORDERED: MAGNESIUM HYDROXIDE SUSP 30 ML CUP PO PRN (04:30)
[2016-12-15] MEDS ORDERED: LACTULOSE SYRUP 20 GM/30 ML CUP PO PRN (04:30)
[2016-12-15] MEDS ORDERED: SODIUM CHLORIDE 0.9% FLUSH 10 ML FLUSH IV FLUSH PRN (04:30)
[2016-12-15] MEDS ORDERED: ONDANSETRON HCL 4 MG/2 ML VIAL IVP PRN (04:30)
[2016-12-15] MEDS ORDERED: hydrALAZINE HCL 20 MG/ML VIAL IV PRN (04:30)
[2016-12-15] MEDS ORDERED: ACETAMINOPHEN/HYDROcodone 325 MG/5 MG TAB PO PRN (04:30)
--- NOTE | 2016-12-15 04:31 | HHI.HP ---
HPI Service [facility] Primary Care Physician Devorah Maciel M.D. Admission Diagnosis SYMPTOMATIC BRADYCARDIA, UNCONTROLLED HTN Diagnoses: Chief Complaint: High blood pressure Travel History International Travel<30 Days: No Contact w/Intl Traveler <30 Da: No Traveled to Known Affected Are: No History of Present Illness 66-year-old male with a medical history significant for hypertension, anxiety disorder, coronary artery disease status post stent placement who presented to the emergency room for elevated blood pressure. Patient reports he had a headache and blurry vision at home. He checked his blood pressure which was markedly elevated which prompted the emergency room visit. On arrival his blood pressure was 184/101. During workup in the emergency room, his heart rate was also noted to be dropping as low as 38. He denies lightheadedness. He reports compliance with his blood pressure medications but does not take them as frequently as ordered. The patient also reports he was taking clonidine which he ran out of some time last week. He is a poor historian. He also notes that he has been taking atenolol which I noted on previous visit the patient was counseled to stop this medication. He reports he feels better since arrival. Review of Systems ROS Limitations: Poor Historian Constitutional: COMPLAINS OF: Fatigue Endocrine: DENIES: Polydipsia, Polyuria Eyes: COMPLAINS OF: Blurred vision Cardiovascular: DENIES: Chest pain Gastrointestinal: DENIES: Nausea, Vomiting Except as stated in HPI: all other systems reviewed are Neg Past Family Social History Past Medical History Hypertension Anxiety disorder Coronary artery disease status post stents placement. Past Surgical History Abdominal hernia repair Left ankle surgery Reported Medications Reported Meds & Active Scripts Active Reported Clindamycin (Clindamycin HCl) 150 Mg Cap 150 Mg PO BID Lorazepam 1 Mg Tab 1 Mg PO BID PRN Lisinopril 20 Mg Tab 20 Mg PO DAILY Hydralazine (Hydralazine HCl) 100 Mg Tab 10 Mg PO Q8HR Take with meals Oxycodone (Oxycodone HCl) 5 Mg Cap 5 Mg PO Q4H PRN [place]illa 3 1000 mg (Camilla-3 Fatty Acids) 1 Cap Cap Atorvastatin (Atorvastatin Calcium) 10 Mg Tab 10 Mg PO HS Amlodipine (Amlodipine Besylate) 10 Mg Tab 10 Mg PO DAILY Atenolol was also part of the patient's medications. Allergies: Coded Allergies: aspirin (Verified Allergy, Severe, Bleeding, 12/14/16) morphine (Verified Allergy, Severe, RASH, 12/14/16) ketorolac (Verified Adverse Reaction, Severe, VOMITING, 12/15/16) Family History Mother from complications of a stroke Father of heart attack in his 80s. Social History Patient continues to smoke 1-1/2 pack of cigarettes per day. He admits to occasional alcohol use. He denies illicit drug use. Physical Exam Vital Signs Vital Signs Date Time Temp Pulse Resp B/P (MAP) Pulse Ox O2 Delivery O2 Flow Rate FiO2 12/15/16 03:57 219/94 (135) 12/15/16 03:39 47 16 199/97 (131) 97 Room Air 12/14/16 23:21 98.1 88 18 184/101 (128) 97 Room Air Physical Exam GENERAL: This is a well-nourished, well-developed patient, in no apparent distress. SKIN: No rashes, ecchymoses or lesions. Cool and dry. HEAD: Atraumatic. Normocephalic. No temporal or scalp tenderness. EYES: Pupils equal round and reactive. Extraocular motions intact. No scleral icterus. No injection or drainage. ENT: Nose without bleeding, purulent drainage or septal hematoma. Throat without erythema, tonsillar hypertrophy or exudate. Uvula midline. Airway patent. NECK: Trachea midline. No JVD or lymphadenopathy. Supple, nontender, no meningeal signs. CARDIOVASCULAR: Regular rate and rhythm without murmurs, gallops, or rubs. RESPIRATORY: Clear to auscultation. Breath sounds equal bilaterally. No wheezes , rales, or rhonchi. GASTROINTESTINAL: Abdomen soft, non-tender, nondistended. No hepato-splenomegaly , or palpable masses. No guarding. MUSCULOSKELETAL: Extremities without clubbing, cyanosis, or edema. No joint tenderness, effusion, or edema noted. No calf tenderness. Negative Homans sign bilaterally. NEUROLOGICAL: Awake and alert. Cranial nerves II through XII intact. Motor and sensory grossly within normal limits. Five out of 5 muscle strength in all muscle groups. Normal speech. Laboratory Laboratory Tests Test 12/15/16 01:00 White Blood Count 12.1 Red Blood Count 5.81 Hemoglobin 12.4 Hematocrit 40.4 Mean Corpuscular Volume 69.6 Mean Corpuscular Hemoglobin 21.3 Mean Corpuscular Hemoglobin Concent 30.6 Red Cell Distribution Width 17.4 Platelet Count 166 Mean Platelet Volume 10.0 Neutrophils (%) (Auto) 54.6 Lymphocytes (%) (Auto) 33.7 Monocytes (%) (Auto) 10.4 Eosinophils (%) (Auto) 1.0 Basophils (%) (Auto) 0.3 Neutrophils # (Auto) 6.6 Lymphocytes # (Auto) 4.1 Monocytes # (Auto) 1.3 Eosinophils # (Auto) 0.1 Basophils # (Auto) 0.0 CBC Comment DIFF FINAL Differential Comment Urine Color LIGHT-YELLOW Urine Turbidity CLEAR Urine pH 5.5 Urine Specific [place] 1.009 Urine Protein 30 Urine Glucose (UA) NEG Urine Ketones NEG Urine Occult Blood NEG Urine Nitrite NEG Urine Bilirubin NEG Urine Urobilinogen LESS THAN 2.0 Urine Leukocyte Esterase NEG Urine RBC LESS THAN 1 Urine WBC LESS THAN 1 Microscopic Urinalysis Comment CULT NOT INDICATED Blood Urea Nitrogen 23 Creatinine 1.72 Random Glucose 99 Total Protein 6.9 Albumin 3.2 Calcium Level 8.1 Magnesium Level 2.2 Alkaline Phosphatase 91 Aspartate Amino Transf (AST/SGOT) 20 Alanine Aminotransferase (ALT/SGPT) 27 Total Bilirubin 0.2 Sodium Level 138 Potassium Level 4.0 Chloride Level 105 Carbon Dioxide Level 26.3 Anion Gap 7 Estimat Glomerular Filtration Rate 48 Troponin I 0.02 Result Diagram: 12/15/169912/15/1699 Imaging Last Impressions Head CT 12/15/16119 Signed Impressions: Service Date/Time: Thursday, December 15, 2016 01:47 - CONCLUSION: 1. No acute intracranial abnormality noted. No change from November 29, 2015. Ramon Wheeler MD Chest X-Ray 12/15/16 0038 Signed Impressions: Service Date/Time: Thursday, December 15, 2016 00:35 - CONCLUSION: 1. Mild basilar atelectasis. Ramon Wheeler MD [place] VTE Risk Assessment Caprini VTE Risk Assessment: Mod/High Risk (score >= 2) Caprini Risk Assessment Model Point Value = 1 Point Value = 2 Point Value = 3 Point Value = 5 Age 41-60 Minor surgery BMI > 25 kg/m2 Swollen legs Varicose veins or History of unexplained or recurrent spontaneous Oral contraceptives or hormone replacement Sepsis (< 1 month) Serious lung disease, including pneumonia (< 1 month) Abnormal pulmonary function Acute myocardial infarction Congestive heart failure (< 1 month) History of inflammatory bowel disease Medical patient at bed rest Age 61-74 Arthroscopic surgery Major open surgery (> 45 min) Laparoscopic surgery (> 45 min) Malignancy Confined to bed (> 72 hours) Immobilizing plaster cast Central venous access Age >= 75 History of VTE Family history of VTE Factor V Leiden Prothrombin [id number] Lupus anticoagulant Anticardiolipin antibodies Elevated serum homocysteine Heparin-induced thrombocytopenia Other congenital or acquired thrombophilia Stroke (< 1 month) Elective arthroplasty Hip, pelvis, or leg fracture Acute spinal cord injury (< 1 month) Prophylaxis Regimen Total Risk Factor Score Risk Level Prophylaxis Regimen 0-1 Low Early ambulation 2 Moderate Order ONE of the following: *Sequential Compression Device (SCD) *Heparin 5000 units SQ BID 3-4 Higher Order ONE of the following medications: *Heparin 5000 units SQ TID *Enoxaparin/Lovenox 40 mg SQ daily (WT < 150 kg, CrCl > 30 mL/min) *Enoxaparin/Lovenox 30 mg SQ daily (WT < 150 kg, CrCl > 10-29 mL/min) *Enoxaparin/Lovenox 30 mg SQ BID (WT < 150 kg, CrCl > 30 mL/min) AND/OR *Sequential Compression Device (SCD) 5 or more Highest Order ONE of the following medications: *Heparin 5000 units SQ TID (Preferred with Epidurals) *Enoxaparin/Lovenox 40 mg SQ daily (WT < 150 kg, CrCl > 30 mL/min) *Enoxaparin/Lovenox 30 mg SQ daily (WT < 150 kg, CrCl > 10-29 mL/min) *Enoxaparin/Lovenox 30 mg SQ BID (WT < 150 kg, CrCl > 30 mL/min) AND *Sequential Compression Device (SCD) Assessment and Plan Problem List: (1) Hypertensive emergency ICD Code: I10 - Essential (primary) hypertension Status: Acute (2) Symptomatic bradycardia ICD Code: R00.1 - Bradycardia, unspecified Status: Acute (3) Uncontrolled hypertension ICD Code: I10 - Essential (primary) hypertension Status: Acute (4) Tobacco abuse ICD Code: Z72.0 - Tobacco use Status: Chronic (5) CKD (chronic kidney disease), stage III ICD Code: N18.3 - Chronic kidney disease, stage 3 (moderate) Status: Chronic Assessment and Plan 66-year-old male with uncontrolled hypertension and probable noncompliance being admitted for hypertensive emergency and symptomatic bradycardia. Hypertensive emergency: neurological symptoms are related to uncontrolled hypertension and/or bradycardia. Head CT unremarkable. He may be having some rebound hypertension from clonidine use. It is unclear the last time he used this medication. - Given extra dose of IV hydralazine. Increase hydralazine to 25 mg every 8 hours. Continue lisinopril 20 mg daily. Continue Norvasc 10 mg daily. Hydralazine IV as needed. Symptomatic bradycardia: The patient continued to take atenolol even after he was told on previous visits to discontinue this medication. I discussed this with the patient at length. I showed him the bottle of the atenolol and advised him to discontinue this medication completely. He voiced understanding. - Continue to monitor on telemetry and monitor for symptoms. Chronic kidney disease stage III: Stable. Continue to monitor. Avoid nephrotoxins. Anxiety: Continue Ativan as needed. GI prophylaxis: Stool softener PRN constipation. DVT PPx: SCDs. I'm concerned about the patient's compliance. Consider home health upon discharge for medical education. Discussed Condition With Dr. José Physician Certification 2 Midnight Certification Type: Admission for Inpatient Services Order for Inpatient Services The services are ordered in accordance with Medicare regulations or non- Medicare payer requirements, as applicable. In the case of services not specified as inpatient-only, they are appropriately provided as inpatient services in accordance with the 2-midnight benchmark. Estimated LOS (days): 2 days is the estimated time the patient will need to remain in the hospital, assuming treatment plan goals are met and no additional complications. Post-Hospital Plan: Yaneli Ortiz MD Dec 15, 2016 04:31
[2016-12-15] MEDS ORDERED: hydrALAZINE HCL 100 MG TAB PO SCH (06:00)
[2016-12-15] MEDS ORDERED: hydrALAZINE HCL 50 MG TAB PO ONE (06:30)
[2016-12-15] MEDS: hydrALAZINE HCL 100 MG TAB PO SCH ×3 (07:24→21:44)
[2016-12-15] MEDS: ACETAMINOPHEN/HYDROcodone 325 MG/5 MG TAB PO PRN ×3 (08:34→21:46)
[2016-12-15] MEDS: LISINOPRIL 20 MG TAB PO SCH (08:35)
[2016-12-15] MEDS: SODIUM CHLORIDE 0.9% FLUSH 10 ML FLUSH IV FLUSH SCH ×2 (08:35→21:00)
[2016-12-15] MEDS ORDERED: ACETAMINOPHEN 325 MG TAB PO PRN (13:00)
--- NOTE | 2016-12-15 16:03 | EKG ---
Date Performed: 12/15/2016 Time Performed: 01:14:29 PTAGE: 66 years EKG: SINUS BRADYCARDIA Poor R wave progression. Largely unchanged from prior tracing. ABNORMAL E CG PREVIOUS TRACING : 11/29/2015 14.55 DOCTOR: John Capm Interpretating Date/Time 12/15/2016 16:02:43
[2016-12-15] MEDS ORDERED: ATORVASTATIN 10 MG TAB PO SCH (21:00)
[2016-12-16] VITALS: BP 162/80; PULSE 67; RESP 18; TEMP 98.1; O2SAT 96
[2016-12-16 04:00] VITALS: BP 149/94; PULSE 66; RESP 18; TEMP 98.3; O2SAT 94
[2016-12-16] MEDS: hydrALAZINE HCL 100 MG TAB PO SCH ×2 (06:57→13:14)
[2016-12-16] MEDS: ACETAMINOPHEN/HYDROcodone 325 MG/5 MG TAB PO PRN (06:58)
[2016-12-16 08:24] VITALS: BP 167/101; PULSE 63; RESP 18; TEMP 98; O2SAT 96
[2016-12-16 09:36] LABS: BICARBONATE 26.5 MEQ/L (21.0-32.0); POTASSIUM 3.9 MEQ/L (3.5-5.1)
[2016-12-16] MEDS: LISINOPRIL 20 MG TAB PO SCH (09:36)
[2016-12-16] MEDS: SODIUM CHLORIDE 0.9% FLUSH 10 ML FLUSH IV FLUSH SCH (09:36)
[2016-12-16] MEDS ORDERED: INFLUENZA VIRUS VACCINE (QUADRIVALENT) 0.5 ML SYR IM ONE (10:00)
[2016-12-16 10:39] VITALS: PULSE 64
--- NOTE | 2016-12-16 11:28 | HHI.PR ---
Subjective Remarks feels great, no headaches, nausea or vomiting seen with at bedside wanting to be DC- needs to go home BP 165-85 at bedside HR- 82- sinus Objective Vitals Vital Signs Date Time Temp Pulse Resp B/P (MAP) Pulse Ox O2 Delivery O2 Flow Rate FiO2 12/16/16 10:39 64 12/16/16 08:24 98.0 63 18 167/101 (123) 96 12/16/16 04:00 98.3 66 18 149/94 (112) 94 12/16/16 00:00 98.1 67 18 162/80 (107) 96 12/15/16 20:00 98.5 76 18 166/86 (112) 95 12/15/16 16:50 99.4 69 17 158/91 (113) 94 12/15/16 12:14 98.7 61 18 157/92 (113) 95 I/O 12/15/16 12/15/16 12/15/16 12/16/16 12/16/16 12/16/16 07:00 15:00 23:00 07:00 15:00 23:00 Intake Total 480 ml Balance 480 ml Intake Oral 480 ml # Voids 1 2 Result Diagram: 12/15/16 0100 12/16/16 0828 Imaging Last Impressions Head CT 12/15/16 0120 Signed Impressions: Service Date/Time: Thursday, December 15, 2016 01:47 - CONCLUSION: 1. No acute intracranial abnormality noted. No change from November 29, 2015. Ramon Wheeler MD Chest X-Ray 12/15/16 0038 Signed Impressions: Service Date/Time: Thursday, December 15, 2016 00:35 - CONCLUSION: 1. Mild basilar atelectasis. Ramon Wheeler MD Objective Remarks awake and alert, oriented x 3,speeech clear anictericno nystagmus no nuchal rigidity lungs clear regular rhythm abdomen soft, nontender extremities no edema neuro exam- non focal, gait steady A/P Problem List: (1) Hypertensive emergency ICD Code: I10 - Essential (primary) hypertension Status: Acute (2) Symptomatic bradycardia ICD Code: R00.1 - Bradycardia, unspecified Status: Acute (3) Uncontrolled hypertension ICD Code: I10 - Essential (primary) hypertension Status: Acute (4) Tobacco abuse ICD Code: Z72.0 - Tobacco use Status: Chronic (5) CKD (chronic kidney disease), stage III ICD Code: N18.3 - Chronic kidney disease, stage 3 (moderate) Status: Chronic Assessment and Plan 66-year-old male with uncontrolled hypertension and probable noncompliance being admitted for hypertensive emergency and symptomatic bradycardia. Hypertensive emergency: neurological symptoms are related to uncontrolled hypertension and/or bradycardia. Head CT unremarkable. He may be having some rebound hypertension from clonidine use. It is unclear the last time he used this medication. - Increase hydralazine to 25 mg every 8 hours. Continue lisinopril 20 mg daily. Continue Norvasc 10 mg daily. Symptomatic bradycardia: HR improved - Atenolol was DC on admission - as d/w by admitting MD Chronic kidney disease stage III: Stable. Continue to monitor. Avoid nephrotoxins. Anxiety: Continue Ativan as needed. GI prophylaxis: Stool softener PRN constipation. DC home today Per patient and has an appt yesterday with PCP- they will set up again Diet heart healthy Activity as tolerated PCP ff up in2-3 days Shiva Holcomb MD Dec 16, 2016 11:28
[2016-12-16] MEDS ORDERED: HYDR-3801 PO (11:31)
[2016-12-16] MEDS ORDERED: AMLO10TA2 PO (11:32)
[2016-12-16 12:15] VITALS: BP 161/87; PULSE 66; RESP 18; TEMP 98.2; O2SAT 96
== END 2016-12-16 14:25 | disposition home or self-care (01) | DRG 305 ==
LOC: NEPE 23:19 → NEDA 12-15 02:47 → N05A 12-15 06:50
PROVIDERS: ADMIT Internal Medicine; ATTEND Internal Medicine
DX: I16.1 Hypertensive emergency (principal); N18.3 Chronic kidney disease, stage 3 (moderate); I12.9 Hypertensive chronic kidney disease with stage 1 through stage 4 chronic kidney disease, or unspecified chronic kidney disease; R00.1 Bradycardia, unspecified; F41.9 Anxiety disorder, unspecified; I25.10 Atherosclerotic heart disease of native coronary artery without angina pectoris; E78.5 Hyperlipidemia, unspecified; F17.210 Nicotine dependence, cigarettes, uncomplicated; Z95.5 Presence of coronary angioplasty implant and graft; Z23 Encounter for immunization; Z91.19 Patient's noncompliance with other medical treatment and regimen; Z79.899 Other long term (current) drug therapy; Z86.73 Personal history of transient ischemic attack (TIA), and cerebral infarction without residual deficits
CPT/HCPCS: 70450; 71010; 80048; 80053; 81001; 83735; 84484; 85025; 90686; 93005; J0360; Q2038

== ENCOUNTER 2017-11-08 01:21 | Inpatient (IN) ==
[2017-11-08 04:27] LABS: Activated Partial Thrombo Time 29.2 sec (24.3-30.1); Prothrombin Time 10.3 sec (9.8-11.6)
--- NOTE | 2017-11-08 04:39 | ED ---
HPI General Chief Complaint: Headache Stated Complaint: poss high blood pressure/left side head pain Time Seen by Provider: 11/08/17 03:37 Source: patient Mode of arrival: ambulatory Limitations: no limitations History of Present Illness HPI Narrative: 67-year-old male presents to the emergency department by private transportation for complaint of 3 days of headache left-sided associated with dizziness and sometimes having to brace himself due to the severity of his dizziness. Headache is not sudden onset thunderclap or worst ever. Patient does have high blood pressure and states sometimes he will have mild dizziness but typically does not have a headache. Patient is taken no medication for his headache other than he does have prescription Percocet for chronic pain and takes Percocet every 4 hours. Patient is prescribed antihypertensive medication and does take this daily although he has been trying to taper himself off of his blood pressure medication slowly. Patient denies any altered mental status difficulty with his speech, vision disturbance, facial droop, difficulty swallowing, neck pain, chest pain, palpitations, nausea, vomiting, or shortness of breath, also denies referred neck jaw shoulder arm back or abdominal pain MD Complaint: headache Onset (ago): day(s) (3 days) Onset description: gradual Location: left Severity: moderate Quality: aching Relieving factors: nothing Exacerbating factors: none (Has history of high blood pressure) Related Data Allergies Allergy/AdvReac Type Severity Reaction Status Date / Time aspirin Allergy Severe Bleeding Verified 12/14/16 23:40 morphine Allergy Severe RASH Verified 12/14/16 23:40 ketorolac AdvReac Severe VOMITING Verified 12/15/16 04:23 Review of Systems ROS: all other systems reviewed are negative [facility] Medical History Medical History Bradycardia (Acute) HTN (hypertension) (Acute) Surgical History Surgical History History of hernia surgery (Acute) Surgical procedure on lower extremity within past 6 months (Acute) Social History Social History Substance History: Past History Smoking Status: Current every day smoker Tobacco Type: Cigarettes How Often Do You Have a Drink Containing Alcohol: Monthly or less Recent Travel in [facility] [[email or web address]] within the Last 8 Weeks: No Recent Out of Country Travel within the Last 8 Weeks: No Exam Narrative Exam Narrative: GENERAL: Well-developed well-nourished male no acute distress no respiratory distress GCS 15, triage blood pressure 162/91 SKIN: Focused skin assessment warm/dry. HEAD: Atraumatic. Normocephalic. EYES: Pupils equal and round. No scleral icterus. No injection or drainage. ENT: No nasal bleeding or discharge. Mucous membranes pink and moist. NECK: Trachea midline. No JVD. CARDIOVASCULAR: Regular rate and rhythm. No murmur appreciated. RESPIRATORY: No accessory muscle use. Clear to auscultation. Breath sounds equal bilaterally. GASTROINTESTINAL: Abdomen soft, non-tender, nondistended. Hepatic and splenic margins not palpable. MUSCULOSKELETAL: No obvious deformities. No clubbing. No cyanosis. No edema. NEUROLOGICAL: Awake and alert. No obvious cranial nerve deficits except for mild right facial droop. Motor grossly within normal limits. No limb ataxia. No pronator drift. Normal speech. PSYCHIATRIC: Appropriate mood and affect; insight and judgment normal. Course Initial Documented Vital Signs Temperature 98.3 F 11/08/17 01:41 Pulse Rate 78 11/08/17 01:41 Respiratory Rate 18 11/08/17 01:41 Blood Pressure 162/81 H 11/08/17 01:41 Pulse Oximetry 96 11/08/17 01:41 Last Documented Vital Signs Temperature 98.3 F 11/08/17 01:41 Pulse Rate 78 11/08/17 01:41 Respiratory Rate 18 11/08/17 01:41 Blood Pressure 162/81 H 11/08/17 01:41 Pulse Oximetry 96 11/08/17 01:41 Medical Decision Making [facility] Narrative Medical decision making narrative: 67-year-old male presents to the emergency department for complaint of dizziness and uncontrolled blood pressure with associated left-sided headache 3 days noted on physical exam to be mildly hypertensive and also to have right facial droop with no other focality on neurologic exam. Patient placed on night monitor with continuous pulse oximetry IV access obtained specimens collected and sent for resulting imaging study of the brain and EKG ordered At 6 AM patient resting comfortably headache stable after tylenol CT brain noncontrast shows evidence of prior right inferior basal ganglion lacunar infarct --This is new since 11/2016 CT Medical Screen Exam Complete: Yes Emergency Medical Condition: Yes Differential Diagnosis Differential Diagnosis: TIA CVA ICH uncontrolled hypertension/hypertensive crisis Collazo's palsy Medical Records Medical records reviewed: Yes I reviewed the patient's medical records. Lab Data Lab results reviewed: Yes I reviewed the patient's lab results. Result diagrams: 11/08/17 04:00 Lab Results 11/08/17 11/08/17 11/08/17 Range/Units 04:00 04:00 04:00 WBC 7.9 (4.0-11.0) th/mm3 RBC 5.84 (4.50-5.90) mil/mm3 Hgb 12.4 L (13.0-17.0) gm/dL Hct 39.1 (39.0-51.0) % MCV 67.0 L (80.0-100.0) fL MCH 21.2 L (27.0-34.0) pg MCHC 31.6 L (32.0-36.0) % RDW 18.1 H (11.6-17.2) % Plt Count 201 (150-450) th/mm3 MPV 9.9 (7.0-11.0) fL Prelim Diff (Auto) Slide review pending Neut % (Auto) 50.7 (16.0-70.0) % Lymph % (Auto) 34.4 (9.0-44.0) % [place] % (Auto) 12.1 H (0.0-8.0) % Eos % (Auto) 2.3 (0.0-4.0) % Baso % (Auto) 0.5 (0.0-2.0) % Neut # (Auto) 4.0 (1.8-7.7) th/mm3 Lymph # (Auto) 2.7 (1.0-4.8) th/mm3 [place] # (Auto) 1.0 H (0.0-0.9) th/mm3 Eos # (Auto) 0.2 (0.0-0.4) th/mm3 Baso # (Auto) 0.0 (0.0-0.2) th/mm3 WBC Differential . Diff Scan Auto diff confirmed Differential Comment . Platelet Estimate Normal (Normal) Platelet Morphology Enlarged H (Normal) Ovalocytes 1+ H (None) Acanthocytes (Spur) 1+ H (None) PT 10.3 (9.8-11.6) sec INR 1.0 Ratio APTT 29.2 (24.3-30.1) sec Troponin I Less than 0.02 L (0.02-0.05) ng/mL Imaging Data Radiologist's impression: Head CT 11/08/17 03:43 CONCLUSION: No acute intracranial abnormality is seen. . ECG Data EKG Prior to Arrival: No Attestation: I personally reviewed and interpreted this ECG as follows: Prior ECG tracings: not available for review Interpretation: EKG: Sinus bradycardia rate 50 nonspecific T-wave change laterally no acute ST elevation Discharge Plan Discharge Disposition Patient Disposition: 30 Still Patient Discharge Condition Condition: Stable Discharge Details Diagnosis: Brain TIA, H/O: CVA (cerebrovascular accident), H/O primary hypertension Physicians Team ED Provider: Antonia Vivas Primary Care Provider: Koko Chiu Status ED Status: With Doctor
[2017-11-08 04:45] LABS: Baso % (Auto) 0.5 % (0.0-2.0); Eos # (Auto) 0.2 th/mm3 (0.0-0.4); Eos % (Auto) 2.3 % (0.0-4.0); Hematocrit 39.1 % (39.0-51.0); Hemoglobin 12.4 gm/dL (13.0-17.0); Lymph # (Auto) 2.7 th/mm3 (1.0-4.8); Lymph % (Auto) 34.4 % (9.0-44.0); Mean Corpuscular HGB Conc 31.6 % (32.0-36.0); Mean Corpuscular Hemoglobin 21.2 pg (27.0-34.0); Mean Platelet Volume 9.9 fL (7.0-11.0); Mono % (Auto) 12.1 % (0.0-8.0); Neut % (Auto) 50.7 % (16.0-70.0); Platelet Count 201 th/mm3 (150-450); Red Blood Count 5.84 mil/mm3 (4.50-5.90); Red Cell Distribution Width 18.1 % (11.6-17.2); White Blood Count 7.9 th/mm3 (4.0-11.0)
--- NOTE | 2017-11-08 05:13 | CT ---
EXAM DATE: 11/08/2017 5:00 AM EDT AGE/SEX: 67 years / Male INDICATIONS: Headaches CLINICAL DATA: This is the patient's initial encounter. Patient reports that signs and symptoms have been present for 1 day and indicates a pain score of 7/10. MEDICAL/SURGICAL HISTORY: Hypertension. Abdominal aortic aneurysm repair. RADIATION DOSE: 56.35 CTDI (mGy) COMPARISON: No prior exams available for comparison. TECHNIQUE: CT of the head without contrast. Using automated exposure control and adjustment of the mA and/or kV according to patient size, radiation dose was kept as low as reasonably achievable to ob tain optimal diagnostic quality images. DICOM format image data is available electronically for revi ew and comparison. FINDINGS: Cerebrum: The ventricles are normal for age. There is an area of prior lacunar infarction involving the inferior right basal ganglia. No evidence of midline shift, mass lesion, hemorrhage or acute inf arction. No extraaxial fluid collections are seen. Posterior Fossa: The cerebellum and brainstem are intact. The 4th ventricle is midline. The cerebe llopontine angle is unremarkable. Extracranial: The visualized portion of the orbits is intact. Skull: The calvaria is intact. No evidence of skull fracture. CONCLUSION: No acute intracranial abnormality is seen. . Electronically signed by: Drake Feliz MD 11/08/2017 5:12 AM EDT
[2017-11-08 05:15] LABS: Platelet Estimate Normal (Normal)
[2017-11-08 05:16] LABS: Ovalocytes 1+
[2017-11-08 05:17] LABS: Acanthocytes 1+
[2017-11-08] MEDS ORDERED: Acetaminophen 325 MG Tablet PO ONE (06:05)
[2017-11-08] MEDS ORDERED: Dextrose 50% in Water 50 ML Vial IV.PUSH PRN (06:31)
[2017-11-08] MEDS: Insulin NovoLOG Aspart Correctional Sugar Inj SQ SCH ×4 (09:30→21:56)
[2017-11-08 09:37] LABS: Chol/HDL Ratio 4.6 Ratio; HDL Cholesterol 36.9 mg/dL (40.0-60.0)
--- NOTE | 2017-11-08 10:10 | US ---
EXAM DATE: 11/08/2017 10:00 AM EDT AGE/SEX: 67 years / Male INDICATIONS: Head pain. CLINICAL DATA: This is the patient's initial encounter. Patient reports that signs and symptoms have been present for 1 day and indicates a pain score of 0/10. MEDICAL/SURGICAL HISTORY: Hypertension. Slow heart rate. . Hernia surgery. COMPARISON: No prior exams available for comparison. VELOCITY PARAMETERS: ICA/CCA Ratio: Right 0.6 , Left 0.8 ICA: Right 57.4 cm/sec, Left 66.9 cm/sec CCA: Right 96.1 cm/sec, Left 87.0 cm/sec ECA: Right 79.9 cm/sec, Left 82.2 cm/sec Vertebral: Right 57.2 cm/sec antegrade, Left 56.9 cm/sec antegrade FINDINGS: Right Carotid: There is minimal atherosclerotic plaque in the carotid bulb.The waveforms are within normal limits. Left Carotid: No significant atherosclerotic disease is visualized. The waveforms are within normal limits. Other: None. CONCLUSION: 1. Right Internal Carotid Artery: No significant stenosis or atherosclerotic plaque is visualized. 2. Left Internal Carotid Artery: No significant stenosis or atherosclerotic plaque is visualized. Electronically signed by: Drake Mcleod MD 11/08/2017 10:09 AM EDT
--- NOTE | 2017-11-08 13:05 | MB ---
cc: Bora Tracy MD, PhD DATE: 11/08/2017 REASON FOR CONSULTATION: Headache, rule out stroke. HISTORY OF PRESENT ILLNESS: This is a very pleasant 67-year-old man who developed a severe left-sided headache yesterday, which was a pounding and throbbing pain. This had actually been going on for 3 days. He also noted dizziness and unsteadiness of gait. He was also found to be hypertensive in the ER, which he states has been a longstanding problem. He also was noted to have a right facial droop with no other focality on his examination. He did have dizziness. The facial droop is improved today. PAST MEDICAL HISTORY: He has got a history of hypertension, bradycardia, hernia surgery. CURRENT MEDICATIONS: 1. Pravachol. 2. Insulin p.r.n. 3. Tylenol p.r.n. NEUROLOGICAL EXAMINATION: VITAL SIGNS: Blood pressure is 151/76, pulse is 64, respirations 20, temperature 98.3. NEUROLOGIC: His higher cortical functions are normal at this time. Cranial nerves intact. There is no facial droop. Motor exam is normal. Reflexes are symmetric. He has no temporal artery tenderness. There is no occipital tenderness. DIAGNOSTIC DATA: CT of the brain is negative. Carotid ultrasound: No significant carotid artery stenosis is identified. EKG is sinus bradycardia. IMPRESSION: Headache I suspect related to his hypertension, facial droop, possibly related to hypertension - rule out transient ischemic attack. RECOMMENDATIONS: We will get an MRI/MRA brain, echocardiogram, monitor cardiac telemetry to rule out atrial fibrillation. Also check lipid panel. Start aspirin 81 mg daily. I will get a sedimentation rate, as well, although not typical of temporal arteritis. Bora Tracy MD, PhD CINDY/tiffanie , 10:38 AM , 10:43 AM
--- NOTE | 2017-11-08 13:07 | MR ---
EXAM DATE: 11/08/2017 12:38 PM EDT AGE/SEX: 67 years / Male INDICATIONS: CVA. cephalgia. CLINICAL DATA: This is the patient's initial encounter. Patient reports that signs and symptoms have been present for 1 day and indicates a pain score of 10/10. MEDICAL/SURGICAL HISTORY: Hypertension. Hemorrhoidectomy. Inguinal hernia repair. COMPARISON: [facility] [place], CT HEAD W/O CONTRAST, 11/08/2017. . TECHNIQUE: Multiplanar, multisequence examination of the brain was performed without contrast. FINDINGS: Cerebrum: There is mild generalized atrophy with ventricular size within normal limits given the degr ee of atrophy. No midline shift, mass lesion, hemorrhage or acute infarction. No extraaxial fluid c ollections are seen. The pituitary gland and suprasellar cistern are normal in configuration. There is an ovoid area of increased T2 signal in the right inferior basal ganglia, stable from the prior st udy. Although nonspecific this could represent an old lacunar infarct. White Matter: There is mild periventricular and subcortical white matter signal change. Posterior Fossa: The cerebellum and brainstem demonstrate no acute abnormality. The 4th ventricle is midline. The cerebellopontine angle is within normal limits. The cerebellar tonsils are normal in p osition. Diffusion Imaging: No areas of restricted diffusion are seen. Extracranial: The visualized sinuses are clear. There is a T2 hyperintense 9 mm skin lesion on the l eft cheek and a similar-appearing structure on the right cheek measuring 8 mm. Susceptibility artifac t is present around the right. CONCLUSION: 1. No acute intracranial abnormality is identified. There are no findings to indicate recent ischemi a. 2. Chronic changes include mild generalized atrophy and mild periventricular white matter change. Electronically signed by: Drake Mcleod MD 11/08/2017 1:06 PM EDT
--- NOTE | 2017-11-08 13:11 | MR ---
EXAM DATE: 11/08/2017 12:49 PM EDT AGE/SEX: 67 years / Male INDICATIONS: CVA. Cephalgia. CLINICAL DATA: This is the patient's initial encounter. Patient reports that signs and symptoms have been present for 1 day and indicates a pain score of 10/10. MEDICAL/SURGICAL HISTORY: Hypertension. Hemorrhoidectomy. Inguinal hernia repair. COMPARISON: [facility] [place], MR HEAD W/O CONTRAST, 11/08/2017. . TECHNIQUE: 3D [id number] MRA was performed. Source images, multiplanar STS MIP, and 3D volum e MIP reconstructions were reviewed. FINDINGS: There is excellent visualization of the major intracranial arteries out to the second-order branch ve ssels. There is no aneurysm, vessel truncation or stenosis, and no vascular malformation. The room clerk ior communicating arteries are patent bilaterally. CONCLUSION: No intracranial arterial abnormality is identified. Electronically signed by: Drake Mcleod MD 11/08/2017 1:10 PM EDT
[2017-11-08 13:26] LABS: Hemoglobin A1c 6.6 % (4.3-6.0)
[2017-11-08] MEDS ORDERED: [UNRECOGNIZED DRUG - OTHER] PO SCH (13:45)
[2017-11-08] MEDS ORDERED: CHLORTHALIDONE 25 MG PO SCH (13:45)
--- NOTE | 2017-11-08 13:52 | P.HPIM ---
History of Present Illness Primary Care Physician: Koko Chiu Chief Complaint: Headache and dizziness History of Present Illness: 67-year-old male with a history of hypertension, prediabetes, sinus bradycardia presents to the emergency room with a 3 day history of off and on left-sided frontal headache in which he describes as a throbbing pain. 2 nights ago he took a Advil p.m. and when he woke up felt some drowsiness and started having some intermittent dizziness associated with headaches. He denies any focalized weakness or numbness. Currently he is asymptomatic with resolved headaches. He reports that his physicians are currently titrating his blood pressure medications. In addition he has a cardiology appointment tomorrow for his history of sinus bradycardia and which discussion has been had about future pacemaker. He denies difficulty with speech nor swallowing. He has no other complaints at this time. Estimated Total Length of Stay (Days): 0 Review of Systems All other systems reviewed negative except as stated in HPI [facility] - History History Provided By: Patient - Medical History Medical History: Medical History (Last Updated 11/08/17 @ 13:48 by Roz Bustamante MD) Bradycardia HTN (hypertension) Prediabetes - Surgical History Surgical History: Surgical History (Last Reviewed 11/08/17 @ 07:36 by Kelli Sorensen) History of hernia surgery Surgical procedure on lower extremity within past 6 months - Family History Family History: Family History (Last Updated 11/08/17 @ 13:49 by Roz Bustamante MD) Father Heart attack Mother Heart attack - Tobacco History Tobacco Use In Past 30 Days: Yes Smoking Status: Current every day smoker Tobacco Type: Cigarettes - Alcohol History How Often Do You Have a Drink Containing Alcohol: Monthly or less - Substance Use History Substance History: Past History - Travel History Recent Travel in the [place] Within the Last 8 Weeks: No Recent Travel Out of the Country Within the Last 8 Weeks: No - Immunization History Tetanus Immunization: Unsure Hx Influenza Vaccine This Season: Unable to Assess Medications and Allergies Active Medications: Active Medications Amlodipine Besylate (Norvasc) 10 mg PO DAILY ROBY Atorvastatin Calcium (Lipitor) 10 mg PO DAILY ROBY Dextrose (D50w Vial) 50 ml IV.PUSH UNSCH PRN PRN Reason: PER HYPOGLYCEMIA PROTOCOL Glucagon (Glucagon Inj) 1 mg OTHER UNSCH PRN PRN Reason: for Hypoglycemia Protocol Insulin Aspart (Novolog Insulin Correctional Sugar Inj) 0 unit SQ ACHS [facility]; Protocol Last Admin: 11/08/17 09:30 Dose: Not Given Lisinopril (Prinivil) 20 mg PO DAILY [facility] Non-Formulary Medication (Chlorthalidone [Chlorthalidone]) 25 mg PO DAILY [facility] Oxycodone HCl (Roxicodone) 10 mg PO Q4-6H [facility] Pravastatin Sodium (Pravachol) 40 mg PO HS ROBY Sodium Chloride (Ns Flush) 2 ml IV.FLUSH BID [facility] Last Admin: 11/08/17 13:20 Dose: Not Given Sodium Chloride (Ns Flush) 2 ml IV.FLUSH PRN PRN PRN Reason: FLUSH AFTER USING IV ACCESS Allergies Allergy/AdvReac Type Severity Reaction Status Date / Time aspirin Allergy Severe Bleeding Verified 12/14/16 23:40 morphine Allergy Severe RASH Verified 12/14/16 23:40 ketorolac AdvReac Severe VOMITING Verified 12/15/16 04:23 Home Medications Medication Instructions Recorded Confirmed Type amlodipine 10 mg PO DAILY 11/08/17 11/08/17 History atorvastatin 10 mg PO DAILY 11/08/17 11/08/17 History chlorthalidone 25 mg PO DAILY 11/08/17 11/08/17 History doxazosin 2 mg PO BID 11/08/17 11/08/17 History lisinopril 20 mg PO DAILY 11/08/17 11/08/17 History lorazepam 1 mg PO BID 11/08/17 11/08/17 History oxycodone 10 mg PO Q4-6H 11/08/17 11/08/17 History Exam Vital signs: Vital Signs 11/08/17 01:41 11/08/17 06:50 11/08/17 07:11 Temperature 98.3 F Pulse Rate 78 54 L 64 Respiratory Rate 18 16 20 Blood Pressure 162/81 H 158/84 H 151/76 H Pulse Oximetry 96 96 95 Intake & Output 11/07/17 11/08/17 11/08/17 18:59 06:59 18:59 Weight 98.883 kg Narrative: GENERAL: Well-nourished well-developed male no acute distress to person place time situation SKIN: Warm and dry. HEAD: Atraumatic. Normocephalic. EYES: Pupils equal and round. No scleral icterus. No injection or drainage. ENT: No nasal bleeding or discharge. Mucous membranes pink and moist. NECK: Trachea midline. No JVD. CARDIOVASCULAR: Regular rate and rhythm. RESPIRATORY: No accessory muscle use. Clear to auscultation. Breath sounds equal bilaterally. GASTROINTESTINAL: Abdomen soft, non-tender, nondistended. Hepatic and splenic margins not palpable. Normoactive bowel sounds MUSCULOSKELETAL: Extremities without clubbing, cyanosis, or edema. No obvious deformities. NEUROLOGICAL: Awake and alert. No obvious cranial nerve deficits. Motor grossly within normal limits. Five out of 5 muscle strength in the arms and legs. Normal speech. PSYCHIATRIC: Appropriate mood and affect; insight and judgment normal. Results - Labs CBC & Chem 7: 11/08/17 04:00 Labs: Short CBC 11/08/17 Range/Units 04:00 WBC 7.9 (4.0-11.0) th/mm3 Hgb 12.4 L (13.0-17.0) gm/dL Hct 39.1 (39.0-51.0) % Plt Count 201 (150-450) th/mm3 Cardiac Enzymes 11/08/17 Range/Units 04:00 Troponin I Less than 0.02 L (0.02-0.05) ng/mL - Imaging Impressions Carotid Doppler Study 11/08/17 00:00 CONCLUSION: 1. Right Internal Carotid Artery: No significant stenosis or atherosclerotic plaque is visualized. 2. Left Internal Carotid Artery: No significant stenosis or atherosclerotic plaque is visualized. Head MRI 11/08/17 00:00 CONCLUSION: 1. No acute intracranial abnormality is identified. There are no findings to indicate recent ischemia. 2. Chronic changes include mild generalized atrophy and mild periventricular white matter change. Head MRA 11/08/17 00:00 CONCLUSION: No intracranial arterial abnormality is identified. Head CT 11/08/17 03:43 CONCLUSION: No acute intracranial abnormality is seen. . - ECG Prior ECG tracings: not available for review Interpretation: Sinus bradycardia or tachycardia with heart rate 49 nonspecific T-wave inversions in V5 and 6 Caprini VTE Risk Assessment Caprini VTE Risk Assessment: Moderate/High Risk (score >= 2) Caprini Risk Assessment Model: Point Value = 1 Point Value = 2 Point Value = 3 Point Value = 5 Age 41-60 Minor surgery BMI > 25 kg/m2 Swollen legs Varicose veins or History of unexplained or recurrent spontaneous Oral contraceptives or hormone replacement Sepsis (< 1 month) Serious lung disease, including pneumonia (< 1 month) Abnormal pulmonary function Acute myocardial infarction Congestive heart failure (< 1 month) History of inflammatory bowel disease Medical patient at bed rest Age 61-74 Arthroscopic surgery Major open surgery (> 45 min) Laparoscopic surgery (> 45 min) Malignancy Confined to bed (> 72 hours) Immobilizing plaster cast Central venous access Age >= 75 History of VTE Family history of VTE Factor V Leiden Prothrombin [id number] Lupus anticoagulant Anticardiolipin antibodies Elevated serum homocysteine Heparin-induced thrombocytopenia Other congenital or acquired thrombophilia Stroke (< 1 month) Elective arthroplasty Hip, pelvis, or leg fracture Acute spinal cord injury (< 1 month) Prophylaxis Regimen: Total Risk Factor Score Risk Level Prophylaxis Regimen 0-1 Low Early ambulation 2 Moderate Order ONE of the following: *Sequential Compression Device (SCD) *Heparin 5000 units SQ BID 3-4 Higher Order ONE of the following medications: *Heparin 5000 units SQ TID *Enoxaparin/Lovenox 40 mg SQ daily (WT < 150 kg, CrCl > 30 mL/min) *Enoxaparin/Lovenox 30 mg SQ daily (WT < 150 kg, CrCl > 10-29 mL/min) *Enoxaparin/Lovenox 30 mg SQ BID (WT < 150 kg, CrCl > 30 mL/min) AND/OR *Sequential Compression Device (SCD) 5 or more Highest Order ONE of the following medications: *Heparin 5000 units SQ TID (Preferred with Epidurals) *Enoxaparin/Lovenox 40 mg SQ daily (WT < 150 kg, CrCl > 30 mL/min) *Enoxaparin/Lovenox 30 mg SQ daily (WT < 150 kg, CrCl > 10-29 mL/min) *Enoxaparin/Lovenox 30 mg SQ BID (WT < 150 kg, CrCl > 30 mL/min) AND *Sequential Compression Device (SCD) Assessment and Plan - Plan 67-year-old male with hypertension presents with headache and nonspecific dizziness with 1. Probable TIApatient will resolve symptoms of headache and dizziness at this time. He cannot tolerate a baby aspirin and will start the patient on Plavix. MRI/MRA negative. 2D echo to be done by his assistant drafter, carotid ultrasound negative. The patient remains neurologically stable will discharge patient to home in the morning with outpatient follow-up. Appreciate neurology consultation and recommendations. 2. Hypertension, chronic essentialresume home amlodipine, lisinopril, monitor blood pressure trends and adjust home medication based on trends. 3. Tobacco abuse. Cessation counseling provided for. 4. History of sinus bradycardiapatient's following up with his assistant drafter in the morning 5. DVT prophylaxisSCDs
[2017-11-08] MEDS: amLODIPine 10 MG Tablet PO SCH (15:39)
[2017-11-08] MEDS: Lisinopril 20 MG Tablet PO SCH (15:39)
--- NOTE | 2017-11-08 16:02 | ECG ---
Date Performed: 11/08/2017 Time Performed: 04:26:20 PTAGE: 67 years EKG: SINUS BRADYCARDIA NONSPECIFIC T-WAVE CHANGE POOR R WAVE PROGRESSION, WHICH MAY BE OF NORMAL VARIANT ABNORMAL ECG Since PREVIOUS TRACING , no significant change noted PREVIOUS TRACIN12/15/2016 DOCTOR: Jeevan Brunson Interpretating Date/Time 11/08/2017 16:01:43
[2017-11-09 02:56] VITALS: RESP 18
[2017-11-09] MEDS: Insulin NovoLOG Aspart Correctional Sugar Inj SQ SCH ×2 (08:57→16:35)
[2017-11-09] MEDS ORDERED: Chlorthalidone 50 MG Tablet PO SCH (09:00)
[2017-11-09] MEDS: Lisinopril 20 MG Tablet PO SCH (09:04)
[2017-11-09] MEDS: amLODIPine 10 MG Tablet PO SCH (09:04)
[2017-11-09 12:30] VITALS: PULSE 64; TEMP 98.1; O2SAT 92
[2017-11-09 16:25] VITALS: BP 165/85
--- NOTE | 2017-11-09 16:33 | ECHRPT ---
Indication: CVA/TIA CONCLUSIONS Normal left ventricular size. Moderate concentric left ventricular hypertrophy. There is normal left ventricular systolic function with an ejection fraction of 60-65%. Mild mitral valve regurgitation. There is trace tricuspid valve regurgitation. The estimated pulmonary arterial pressure is 28 mmHg. BP: / HR: Rhythm: Sinus MEASUREMENTS (Male / Female) Normal Values Technical Quality:Fair 2D ECHO LV Diastolic Diameter PLAX 4.4 cm 4.2 - 5.9 / 3.9 - 5.3 cm LV Systolic Diameter PLAX 3.2 cm IVS Diastolic Thickness 1.7 cm 0.6 - 1.0 / 0.6 - 0.9 cm LVPW Diastolic Thickness 1.7 cm 0.6 - 1.0 / 0.6 - 0.9 cm LV Relative Wall Thickness 0.8 RV Internal Dim ED PLAX 3.7 cm LVOT Diameter 2.5 cm Aortic Root Diameter 3.5 cm LA Systolic Diameter LX 3.6 cm 3.0 - 4.0 / 2.7 - 3.8 cm M-MODE AV Cusp Separation MM 2.3 cm DOPPLER AV Peak Velocity 106.0 cm/s AV Peak Gradient 4.5 mmHg AV Mean Gradient 3.0 mmHg AV Velocity Time Integral 24.6 cm LVOT Peak Velocity 93.2 cm/s LVOT Peak Gradient 3.5 mmHg LVOT Velocity Time Integral 23.1 cm AV Area Cont Eq vti 4.6 cm AV Area Cont Eq pk 4.3 cm Mitral E Point Velocity 68.6 cm/s Mitral A Point Velocity 78.5 cm/s Mitral E to A Ratio 0.9 LV E' Lateral Velocity 10.6 cm/s Mitral E to LV E' Lateral Ratio 6.5 LV E' Septal Velocity 6.9 cm/s Mitral E to LV E' Septal Ratio 9.9 TR Peak Velocity 210.0 cm/s TR Peak Gradient 17.6 mmHg Right Atrial Pressure 10.0 mmHg Pulmonary Artery Systolic Pressu 27.6 mmHg Right Ventricular Systolic Press 27.6 mmHg PV Peak Velocity 56.4 cm/s PV Peak Gradient 1.3 mmHg FINDINGS LEFT VENTRICLE Normal left ventricular size. Moderate concentric left ventricular hypertrophy. The left ventricular systolic function is normal with an estimated ejection fraction in the range of 60-65%. RIGHT VENTRICLE Normal right ventricular size and systolic function. LEFT ATRIUM The left atrial size is normal. RIGHT ATRIUM The right atrial size is normal. ATRIAL SEPTUM No atrial level shunt is demonstrated by color flow Doppler interrogation. AORTA The aortic root and proximal ascending aorta are not well visualized. MITRAL VALVE Mild mitral valve regurgitation. AORTIC VALVE Trileaflet aortic valve. No aortic valve stenosis or regurgitation. TRICUSPID VALVE There is trace tricuspid valve regurgitation. The estimated pulmonary arterial pressure is 27.6 mmHg. PULMONARY VALVE The pulmonary valve is not well visualized. VESSELS The inferior vena cava is normal in size. PERICARDIUM No pericardial effusion. Pierce Sloan MD, FACC (Electronically Signed) Final Date:09 November 2017 16:32
== END 2017-11-09 15:35 | disposition home or self-care (01) ==
LOC: NEDA 01:21 → NEPC 01:21 → NEDA 15:46 → NEPGCP 16:11
PROVIDERS: ADMIT Hospitalist; ATTEND Hospitalist